=== PATIENT | female | born 1965 ===

== ENCOUNTER 2017-09-12 08:07 | Day surgery (SDC) | payer BC ==
[~2017-09-12 08:07] MED LIST: Buffered Lidocaine 0.9% SYRIN* 5 ML/SYR SYRINGE INTRADERM ONE
[2017-09-12] MEDS ORDERED: ceFAZolin 2 GM PREMIX (*) 2 GM/50 ML BAG IVPB ONE (08:14)
[2017-09-12] MEDS ORDERED: Buffered Lidocaine 0.9% SYRIN* 5 ML/SYR SYRINGE ONE (08:14)
[2017-09-12] MEDS ORDERED: Mineral Oil Sterile, TOPICAL* 25 ML BTL ONE (10:37)
[2017-09-12] MEDS ORDERED: Lidocain 1% EPI 1:100,000 * 30 ML MDV ONE ×3 (10:37→12:41)
[2017-09-12] MEDS ORDERED: Bupivacaine 0.25% SDV* 30 ML ONE (10:37)
[2017-09-12] MEDS ORDERED: fentaNYL* 50 MCG/ML 2 ML VIAL (100 MCG VIAL) ONE ×2 (11:00→12:55)
[2017-09-12] MEDS ORDERED: Midazolam* 1 MG/ML 5 ML VIAL (5 MG) ONE ×3 (11:00→13:40)
[2017-09-12] MEDS ORDERED: Acetaminophen TAB* 325 MG PO PRN (11:24)
[2017-09-12] MEDS ORDERED: oxyCODONE TAB* 5 MG TAB PO PRN (11:24)
[2017-09-12] MEDS ORDERED: Naloxone* 0.4 MG/ML 1 ML VIAL IV PRN (11:24)
[2017-09-12] MEDS ORDERED: Propofol* 10 MG/ML 20 ML BTL IV PUSH ONE (12:14)
[2017-09-12 16:35] VITALS: BP 132/89
== END 2017-09-12 16:39 | disposition home or self-care (01) ==
LOC: OR 08:07
PROVIDERS: ATTEND Plastic Surgery
DX: C44.41 Basal cell carcinoma of skin of scalp and neck (principal); F32.9 Major depressive disorder, single episode, unspecified; F98.8 Other specified behavioral and emotional disorders with onset usually occurring in childhood and adolescence
CPT/HCPCS: 81025; 88305; 88331; 88332; A9270-GY; J0690; J2250; J2704; J3010

== ENCOUNTER 2017-09-13 02:24 | Emergency (ER) | payer BC ==
[2017-09-13] MEDS ORDERED: Tranexamic Acid 1,000 MG/10 ML SDV IV ONE ×2 (02:52→04:00)
[2017-09-13 04:01] VITALS: BP 177/87
--- NOTE | 2017-09-13 04:17 | ED ---
Raheem Marmolejo Natalie, scribed for Robbie Phillips MD on 09/13/17 at 0253 . Head Injury - HPI Summary HPI Summary: The patient is a 52 y/o F presenting to the ED c/o bleeding from surgical incision behind right ear starting 02:00 today. Yesterday she had surgery for basal cell carcinoma removal by Dr. Waters. There are multiple skin grafts on the pt's head. She noticed the bleeding when she woke up. The bleeding is severe enough to be going through the dressing on her head. The pain is rated 3/ 10 in severity. She has treated the pain with Tylenol GATEMAN to no relief. Pt additionally c/o headache. She denies nausea and dizziness. She does not take any blood thinners. - History Of Current Complaint Chief Complaint: EDBleedingDisorder Stated Complaint: HEAD INJURY Time Seen by Provider: 09/13/17 02:43 Hx Obtained From: Patient Mechanism Of Injury: Incised - from surgery Onset/Duration: Started Minutes Ago, Still Present Onset of Pain: Immediate Severity Currently: Severe Pain Intensity: 3 Pain Scale Used: 0-10 Numeric Location of Head Injury: Parietal - Allergies/Home Medications Allergies/Adverse Reactions: Allergies Allergy/AdvReac Type Severity Reaction Status Date / Time Sulfa (Sulfonamide Allergy Rash And Verified 09/13/17 02:30 Antibiotics) Itching PMH/Surg Hx/FS Hx/Imm Hx Endocrine/Hematology History: Reports: Hx Anemia - iron supplement Denies: Hx Diabetes Cardiovascular History: Reports: Hx Hypercholesterolemia Denies: Hx Congestive Heart Failure, Hx Hypertension - elevated on occasion per pt, Other Cardiovascular Problems/Disorders Respiratory History: Denies: Other Respiratory Problems/Disorders GI History: Denies: Other GI Disorders History: Reports: Other Problems/Disorders - Problem with bladder emptying , feels like not empty Musculoskeletal History: Reports: Hx Arthritis - Knees, right ankle and hips Denies: Other Musculoskeletal History Sensory History: Reports: Hx Contacts or Glasses - Glasses for distance Denies: Hx Hearing Aid Opthamlomology History: Reports: Hx Contacts or Glasses - Glasses for distance Neurological History: Reports: Hx Headaches - Occasional, Hx Migraine - as a preteen, none recent, Hx Seizures - 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, petit mal seizures, Other Neuro Impairments/Disorders - ADD Psychiatric History: Reports: Hx Depression - treated with medication - Surgical History Hx Anesthesia Reactions: No Infectious Disease History: No Infectious Disease History: Denies: Traveled Outside the [place] in Last 30 Days - Family History Known Family History: Positive: Hypertension - Social History Alcohol Use: None Substance Use Type: Reports: None Smoking Status (MU): Never Smoked Tobacco Review of Systems Negative: Nausea Positive: Other - bleeding from surgical wound behind right ear Neurological: Negative - dizziness All Other Systems Reviewed And Are Negative: Yes Physical Exam - Summary Physical Exam Summary: Appearance: Well appearing, no pain distress Skin: warm, dry, reflects adequate perfusion Head/face: normal Eyes: EOMI, SHAYY ENT: normal, extensive plastic surgery repair wounds circumferential around the right ear, surgical wound posterior of the ear that is dripping red blood, pressure held and wound continues to bleed Neck: supple, non-tender Respiratory: CTA, breath sounds present Cardiovascular: RRR, pulses symmetrical Abdomen: non-tender, soft Bowel Sounds: present Musculoskeletal: normal, strength/ROM intact Neuro: normal, sensory motor intact, A&Ox3 Triage Information Reviewed: Yes Vital Signs On Initial Exam: Initial Vitals Temp Pulse Resp BP Pulse Ox 98.1 F 91 18 168/102 97 09/13/17 02:26 09/13/17 02:26 09/13/17 02:26 09/13/17 02:26 09/13/17 02:26 Vital Signs Reviewed: Yes Procedures - Procedure Summary Procedure Summary: Wound care: Reason: Persistent bleeding from wound Description: The patient had extensive plastic surgery with rotational flap reconstruction yesterday. She is not on blood thinners. The bloodsoaked dressing was taken down and the wound is examined for active bleeding. The only actively bleeding site was found behind the right ear in the middle of the surgical wound. The wound was not dehisced. Pressure was applied for approximately 10-15 minutes without any improvement. I injected into the area of bleeding approximately 100 mg of tranexamic acid. This quickly resolved the bleeding. There is no hematoma in the site. Xeroform was cut and placed over each area of sutured wound. Pressure dressing was applied consisting of folded gauze pad behind the ear and Curlex gauze wrap. This was covered and Coban to provide some pressure. She tolerated this well without complications. All bleeding stopped. Total estimated blood loss from her bleeding is unknown but there is very little after pressure was applied. Diagnostics - Vital Signs Vital Signs Temp Pulse Resp BP Pulse Ox 09/13/17 02:26 98.1 F 91 18 168/102 97 - Laboratory Lab Statement: Any lab studies that have been ordered have been reviewed, and results considered in the medical decision making process. Re-Evaluation - Re-Evaluation First Eval Change: Improved - Bleeding resolved after intralesional injection of tranexamic acid. No ill effect. Pressure dressing reapplied. Head Injury Course/Dx Course Of Treatment: Patient with extensive bleeding from a surgical wound. The wound was taken down and it appeared to be coming from a venous source just behind the right ear. Pressure was applied for approximately 10 minutes without benefit. Intralesional tranexamic acid was injected and resolved the bleeding. The wound was then redressed. I spoke with the operating plastic surgeon who will follow the patient up in the office later today. - Diagnoses Provider Diagnoses: Postoperative bleeding from incision - Physician Notifications Discussed Care Of Patient With: Chris Waters Time Discussed With Above Provider: 03:34 Instructed by Provider To: Other - Dr. Waters is thankful for the call. He will see the patient tomorrow for a checkup on her surgical wound. Discharge - Sign-Out/Discharge Documenting (check all that apply): Discharge/Admit/Transfer - Discharge Plan Condition: Improved Disposition: HOME Prescriptions: Hydrocodone/Acetaminophen [Hydrocodone-Acetamin 5-325 mg] 1 each PO TID PRN #6 tablet MDD 3 PRN Reason: for more serious pain Patient Education Materials: Postoperative Bleeding (ED) Referrals: Chris Waters MD [Medical Doctor] - Additional Instructions: Follow-up with your plastic surgeon today as scheduled. Follow-up with your plastic surgeon today as scheduled. Return with heavy bleeding, worse or other concerns. Leave the dressing intact. - Billing Disposition and Condition Condition: IMPROVED Disposition: HOME The documentation as recorded by the Raheem jama Natalie accurately reflects the service I personally performed and the decisions made by me, Robbie Phillips MD.
== END 2017-09-13 04:05 | disposition home or self-care (01) ==
LOC: ED 02:24
DX: L76.22 Postprocedural hemorrhage of skin and subcutaneous tissue following other procedure (principal); C44.212 Basal cell carcinoma of skin of right ear and external auricular canal; Z88.2 Allergy status to sulfonamides
CPT/HCPCS: 96374; 99282

== ENCOUNTER → 2018-02-28 18:46 | Emergency (ER) | payer BC ==
--- NOTE | 2018-02-28 21:05 | ED ---
Throat Pain/Nasal Congestion - HPI Summary HPI Summary: 52 year old female presents with right eye floaters since yesterday. She states that the floaters are constant and change location. She denies any loss of vision. States that has blurred vision looking through floaters. no pain. no diplopia. She has glasses that are an old script. no trauma. No foreign body. No headache. she does have history of migraines but has never had this before. - History of Current Complaint Chief Complaint: EDEyeProblem Time Seen by Provider: 02/28/18 20:48 - Allergies/Home Medications Allergies/Adverse Reactions: Allergies Allergy/AdvReac Type Severity Reaction Status Date / Time Sulfa (Sulfonamide Allergy Rash And Verified 02/28/18 18:56 Antibiotics) Itching PMH/Surg Hx/FS Hx/Imm Hx Endocrine/Hematology History: Reports: Hx Anemia - iron supplement Denies: Hx Diabetes Cardiovascular History: Reports: Hx Hypercholesterolemia Denies: Hx Congestive Heart Failure, Hx Hypertension - elevated on occasion per pt, Other Cardiovascular Problems/Disorders Respiratory History: Denies: Other Respiratory Problems/Disorders GI History: Denies: Other GI Disorders History: Reports: Other Problems/Disorders - Problem with bladder emptying , feels like not empty Musculoskeletal History: Reports: Hx Arthritis - Knees, right ankle and hips Denies: Other Musculoskeletal History Sensory History: Reports: Hx Contacts or Glasses - Glasses for distance Denies: Hx Hearing Aid Opthamlomology History: Reports: Hx Contacts or Glasses - Glasses for distance Neurological History: Reports: Hx Headaches - Occasional, Hx Migraine - as a preteen, none recent, Hx Seizures - 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 Vaginal Septum 1979 [place]. [place] [facility] [place], [place] [facility] [place] Herniated disc 2009 [place] Hx Anesthesia Reactions: No Infectious Disease History: No Infectious Disease History: Denies: Traveled Outside the [place] in Last 30 Days - Family History Known Family History: Positive: Hypertension - Social History Alcohol Use: None Substance Use Type: Reports: None Smoking Status (MU): Never Smoked Tobacco Review of Systems Negative: Fever Positive: Blurred Vision, Other - floaters Negative: Chest Pain Negative: Shortness Of Breath All Other Systems Reviewed And Are Negative: Yes Physical Exam Triage Information Reviewed: Yes Vital Signs On Initial Exam: Initial Vitals Temp Pulse Resp BP Pulse Ox 98.3 F 91 16 148/91 100 02/28/18 18:53 02/28/18 18:53 02/28/18 18:53 02/28/18 18:53 02/28/18 18:53 Vital Signs Reviewed: Yes Appearance: Positive: Well-Appearing Skin: Positive: Warm, Dry Head/Face: Positive: Normal Head/Face Inspection Eyes: Positive: Normal, EOMI, SHAYY, Conjunctiva Clear, Other: - visual brown intact, normal fundoscopic exam ENT: Positive: Normal ENT inspection, Pharynx normal, TMs normal Respiratory/Lung Sounds: Positive: Clear to Auscultation, Breath Sounds Present Cardiovascular: Positive: Normal, RRR Musculoskeletal: Positive: Normal Neurological: Positive: Normal Psychiatric: Positive: Normal Diagnostics - Vital Signs Vital Signs Temp Pulse Resp BP Pulse Ox 02/28/18 18:53 98.3 F 91 16 148/91 100 - Laboratory Lab Statement: Any lab studies that have been ordered have been reviewed, and results considered in the medical decision making process. EENT Course/Dx - Course Course Of Treatment: 52 year old female presents with right eye floaters since yesterday. She states that the floaters are constant and change location. She denies any loss of vision. States that has blurred vision looking through floaters. no pain. no diplopia. She has glasses that are an old script. no trauma. No foreign body. No headache. on exam has no visual field deficit noted. right eye 20/30 and left eye 20/20 with glasses. normal fundoscopic. normal conjunctiva. discussed with dr self and said will see in office tomorrow. patient understand and agrees with plan. - Differential Diagnoses Differential Diagnoses: Detached Retina, Foreign Body, Other - migraine, - Diagnoses Provider Diagnoses: Floaters Discharge - Sign-Out/Discharge Documenting (check all that apply): Patient Departure - Discharge Plan Condition: Good Disposition: HOME Referrals: Grupo Webster MD [Primary Care Provider] - [place] Self MD [Medical Doctor] - Additional Instructions: follow up with optho tomorrow Return to ED if develop any new or worsening symptoms - Billing Disposition and Condition Condition: GOOD Disposition: Home
[2018-02-28 21:40] VITALS: BP 139/93
== END | disposition home or self-care (01) ==
LOC: ED 18:46
DX: H43.399 Other vitreous opacities, unspecified eye (principal); H53.8 Other visual disturbances
CPT/HCPCS: 99282